=== PATIENT | male | born 1960 | race Two or more races ===

== ENCOUNTER 2018-01-21 17:57 | Emergency (ER) | payer SELFPAY ==
[2018-01-21] MEDS ORDERED: predniSONE TAB* 20 MG PO ONE (19:30)
--- NOTE | 2018-01-21 19:32 | ED ---
Upper Extremity Pain - HPI Summary HPI Summary: Patient complains of right shoulder pain 4-5 days. History of same with diagnosis of bursitis. Patient wants cortisone shot. Denies trauma, any other symptoms or injuries. - History of Current Complaint Chief Complaint: EDExtremityUpper Stated Complaint: UNABLE TO MOVE RT ARM Time Seen by Provider: 01/21/18 18:43 - Allergies/Home Medications Allergies/Adverse Reactions: Allergies Allergy/AdvReac Type Severity Reaction Status Date / Time No Known Allergies Allergy Verified 01/21/18 18:02 Home Medications: Home Medications Naproxen Sodium [Naproxen 220 mg] 440 mg PO BID PRN 01/21/18 [History Confirmed 01/21/18] PMH/Surg Hx/FS Hx/Imm Hx Endocrine/Hematology History: Denies: Hx Anticoagulant Therapy History: Reports: Hx Dialysis Neurological History: Reports: Hx CVA - Immunization History Immunizations Up to Date: Yes Infectious Disease History: No Infectious Disease History: Denies: Traveled Outside the [place] in Last 30 Days - Family History Known Family History: Positive: None - no clotting d/o, heart disease or dm - Social History Alcohol Use: Daily Alcohol Amount: one beer a day Substance Use Type: Reports: None Hx Tobacco Use: Yes Smoking Status (MU): Heavy Every Day Tobacco Smoker Review of Systems Constitutional: Negative Eyes: Negative ENT: Negative Cardiovascular: Negative Respiratory: Negative Gastrointestinal: Negative Genitourinary: Negative Positive: Arthralgia Skin: Negative Neurological: Negative Psychological: Normal All Other Systems Reviewed And Are Negative: Yes Physical Exam - Summary Physical Exam Summary: Patient uses right wrist and right elbow without pain but cannot abduct right shoulder above shoulder level without pain. No erythema, ecchymosis, swelling, deformity, extra warmth to right shoulder joint. PMS intact distally Vital Signs On Initial Exam: Initial Vitals Temp Pulse Resp BP Pulse Ox 97.9 F 63 16 168/80 99 01/21/18 17:59 01/21/18 17:59 01/21/18 17:59 01/21/18 17:59 01/21/18 17:59 Diagnostics - Vital Signs Vital Signs Temp Pulse Resp BP Pulse Ox 01/21/18 17:59 97.9 F 63 16 168/80 99 - Laboratory Lab Statement: Any lab studies that have been ordered have been reviewed, and results considered in the medical decision making process. Course/Dx - Course Course Of Treatment: Patient complains of right shoulder pain 4-5 days. Evidently his right wrist and right elbow without pain but cannot abduct right shoulder above shoulder level without pain. History of same with diagnosis of bursitis. Patient wants cortisone shot. Denies any other symptoms or injuries. Physical exam:Patient uses right wrist and right elbow without pain but cannot abduct right shoulder above shoulder level without pain. No erythema , ecchymosis, swelling, deformity, extra warmth to right shoulder joint. PMS intact distally. Patient started on prednisone by mouth. Rx for same. Follow- up with orthopedics - Diagnoses Provider Diagnoses: Right shoulder pain Discharge - Sign-Out/Discharge Documenting (check all that apply): Patient Departure - Discharge Plan Condition: Stable Disposition: HOME Prescriptions: predniSONE TAB* [Deltasone 20 MG TAB*] 40 mg PO DAILY 5 Days #5 tab Patient Education Materials: Shoulder Pain (ED) Referrals: No Primary Care Phys,NOPCP [Primary Care Provider] - Priscilla Dwyer MD [Medical Doctor] - Additional Instructions: Follow-up with orthopedics Dr. Dwyer for further evaluation of right shoulder pain. Return to the ED for any new or worsening symptoms - Billing Disposition and Condition Condition: STABLE Disposition: Home
[2018-01-21 20:01] VITALS: BP 155/70
== END 2018-01-21 19:59 | disposition home or self-care (01) ==
LOC: ED 17:57
DX: M25.511 Pain in right shoulder (principal); F17.210 Nicotine dependence, cigarettes, uncomplicated
CPT/HCPCS: 99282; J7512

== ENCOUNTER 2018-04-27 20:25 | Emergency (ER) | payer SELFPAY ==
--- NOTE | 2018-04-27 21:02 | ED ---
Headache - HPI Summary HPI Summary: The patient is a 57 y/o M presenting to [facility] with a chief complaint of a constant headache for the last few weeks. The headache is located on the parietal head and feels tight with pressure like he still has a hat on. The pain is currently rated 7/10 in severity. He has taken Ibuprofen and Tylenol for the pain to no relief. The pain is aggravated by sneezing and coughing. He denies changes in vision, facial pain, rhinorrhea, cough, dizziness, changes in coordination, and changes in gait. He does not have hx of headaches or migraines. - History Of Current Complaint Chief Complaint: EDHeadache Stated Complaint: HEADACHE Time Seen by Provider: 04/27/18 20:49 Hx Obtained From: Patient Onset/Duration: Sudden Onset, Started weeks ago - almost a month ago, Still Present Initially Headache Was: Moderate Currently Pain Is: Current Pain Scale(0-10)= - 7 Timing: Constant, Weeks Character: Pressure - and tightness Location of Headache: Parietal Associated Signs And Symptoms: Other (Noted In Comments) - NEGATIVE: changes in vision, facial pain, rhinorrhea, cough, dizziness, changes in coordination, changes in gait - Allergies/Home Medications Allergies/Adverse Reactions: Allergies Allergy/AdvReac Type Severity Reaction Status Date / Time No Known Allergies Allergy Verified 01/21/18 18:02 PMH/Surg Hx/FS Hx/Imm Hx Endocrine/Hematology History: Denies: Hx Anticoagulant Therapy History: Reports: Hx Dialysis Neurological History: Reports: Hx CVA - Surgical History Surgery Procedure, Year, and Place: none Infectious Disease History: No Infectious Disease History: Denies: Traveled Outside the [place] in Last 30 Days - Family History Known Family History: Negative: Cardiac Disease, Diabetes - Social History Alcohol Use: Daily Alcohol Amount: one beer a day Substance Use Type: Reports: None Hx Tobacco Use: Yes Smoking Status (MU): Heavy Every Day Tobacco Smoker Do You Chew or Dip Tobacco: No Review of Systems Positive: Other - NEGATIVE: visual changes, pain in face Negative: Nasal Discharge Negative: Cough Neurological: Other - NEGATIVE: dizziness, changes in coordination, changes in gait Positive: Headache - constant, on top of head All Other Systems Reviewed And Are Negative: Yes Physical Exam - Summary Physical Exam Summary: Appearance: Well-appearing, Well-nourished, lying in bed comfortable Skin: Warm, dry, no obvious rash Eyes: sclera anicteric, no conjunctival pallor, normal sharp disc margin with no papilledema ENT: mucous membranes moist Neck: deferred Respiratory: No signs of respiratory distress Cardiovascular: Appears well perfused, pulses are nml, hypertensive Abdomen: deferred Musculoskeletal: Moving all 4 extremities without obvious discomfort Neurological: Awake and alert, mentation is normal, speech is fluent and appropriate, GCS:15 Psychiatric: affect is normal, does not appear anxious or depressed Triage Information Reviewed: Yes Vital Signs On Initial Exam: Initial Vitals Temp Pulse Resp BP Pulse Ox 97.8 F 66 16 175/79 99 04/27/18 20:26 04/27/18 20:26 04/27/18 20:26 04/27/18 20:26 04/27/18 20:26 Vital Signs Reviewed: Yes - [place] Coma Scale Best Eye Response: 4 - Spontaneous Best Motor Response: 6 - Obeys Commands Best Verbal Response: 5 - Oriented Coma Scale Total: 15 Diagnostics - Vital Signs Vital Signs Temp Pulse Resp BP Pulse Ox 04/27/18 20:26 97.8 F 66 16 175/79 99 - Laboratory Result Diagrams: 04/27/18 21:02 04/27/18 21:02 Lab Statement: Any lab studies that have been ordered have been reviewed, and results considered in the medical decision making process. - CT Brain CT CT Interpretation Completed By: Radiologist Summary of CT Findings: Normal noncontrast head CT. ED physician has reviewed this report. Re-Evaluation - Re-Evaluation First Eval Re-Evaluation Time: 21:35 Change: Unchanged Comment: I spoke with the patient concering CT results and discharge home. Headache Course/Dx - Course Course Of Treatment: The patient is a 57 y/o M presenting to [facility] with a chief complaint of a constant headache for the last few weeks. The headache is located in the parietal regions and feels tight with pressure. He has taken Ibuprofen and Tylenol for the pain to no relief. The pain is aggravated by sneezing and coughing. He denies changes in vision, facial pain, rhinorrhea, cough, dizziness, changes in coordination, and changes in gait. He does not have hx of headaches or migraines. Upon physical exam, there is normal sharp disc margin with no papilledema and elevated BP of 175/79. In the ED course, the patient was given Lisinopril. Brain CT is negative. He is diagnosed with headache and hypertension. He will be discharged home with prescription for Lisinopril, education materials, and follow up with PCP. He agrees with this plan and understands the need for return to the ED for any new or worsening symptoms. - Diagnoses Provider Diagnoses: Headache, Hypertension Discharge - Sign-Out/Discharge Documenting (check all that apply): Patient Departure - Patient will be discharged home. - Discharge Plan Condition: Good Disposition: HOME Prescriptions: Lisinopril 10 mg PO DAILY #30 tablet Patient Education Materials: Acute Headache (ED), Hypertension (ED) Referrals: [facility] [place] [facility] REFERRAL [Outside] - 3 Days Additional Instructions: Your blood pressure was consistently elevated today. I am starting you on medication to treat this, it is not clear at this point if the elevated blood pressure is responsible for your headache. In any event, you need to find a primary care doctor to have your blood pressure treated. Follow up with your primary care provider in 3 days. Return to the emergency department for any new or worsening symptoms. - Billing Disposition and Condition Condition: GOOD Disposition: Home - Attestation Statements Document Initiated by West: Yes Documenting Scribe: Venecia Keating Provider For Whom West is Documenting (Include Credential): Dr. Russ Norris MD Scribe Attestation: I, evangelist Solaresed for Dr. Russ Norris MD on 04/30/18 at 1411. Scribe Documentation Reviewed: Yes Provider Attestation: The documentation as recorded by the Venecia wen accurately reflects the service I personally performed and the decisions made by me, Dr. Russ Norris MD Status of Scribe Document: Viewed
[2018-04-27 21:07] LABS: ABS Basophils 0.1 10^3/ul (0-0.2); ABS Eosinophils 0.2 10^3/ul (0-0.6); ABS Lymphocytes 4.3 10^3/ul (1.0-4.8); ABS Monocytes 0.7 10^3/ul (0-0.8); ABS Neutrophils 4.3 10^3/ul (1.5-7.7); ABS Nucleated RBC 0 10^3/ul; Eosinophil % 2.5 %; Hematocrit 42 % (42-52); Hemoglobin 14.1 g/dl (14.0-18.0); Lymphocyte % 45.1 %; Mean Corpuscular HGB Conc 33 g/dl (31-36); Mean Corpuscular Hemoglobin 29 pg (27-31); Mean Corpuscular Volume 86 fL (80-94); Mean Platelet Volume 7.8 fL (7.4-10.4); Nucleated Red Blood Cells % 0.1; Platelet Count 237 10^3/ul (150-450); Red Blood Count 4.93 10^6/ul (4.00-5.40); Red Cell Distribution Width 15 % (10.5-15); White Blood Count 9.6 10^3/ul (3.5-10.8)
[2018-04-27 21:23] LABS: ALT 20 U/L (7-52); Albumin 4.1 g/dL (3.2-5.2); Albumin/Globulin Ratio 1.4 (1-3); Alkaline Phosphatase 50 U/L (34-104); BUN/Creatinine Ratio 17.8 (8-20); Blood Urea Nitrogen 21 mg/dL (6-24); CO2 Carbon Dioxide 28 mmol/L (22-32); Calcium 9.7 mg/dL (8.6-10.3); Chloride 106 mmol/L (101-111); EGFR Non-African American 63.9 (>60); Globulin 2.9 g/dL (2-4); Glucose 105 mg/dL (70-100); Sodium 139 mmol/L (135-145)
[2018-04-27 21:37] LABS: Anion Gap 5 mmol/L (2-11)
[2018-04-27] MEDS ORDERED: Lisinopril TAB* 10 MG PO ONE (21:39)
[2018-04-27 22:13] VITALS: BP 178/95
[2018-04-27 22:22] LABS: TSH (Thyroid Stimulating Horm) 1.87 mcIU/mL (0.34-5.60)
== END 2018-04-27 22:12 | disposition home or self-care (01) ==
LOC: ED 20:25
DX: R51 Headache (principal); I10 Essential (primary) hypertension; F17.200 Nicotine dependence, unspecified, uncomplicated
CPT/HCPCS: 36415; 70450; 80053; 84443; 85025; 99283; A9270-GY